=== PATIENT | female | born 1980 | race Asian ===

== ENCOUNTER 2020-04-07 21:53 | Emergency (ER) | payer BC ==
[~2020-04-07] VITALS: Ht 142.2 cm; Wt 44.5 kg
[2020-04-07] MEDS ORDERED: haloperidol lactate 5mg/ml inj IM ONE (22:15)
[2020-04-07] MEDS ORDERED: diphenhydrAMINE 50 mg/ml inj IM ONE (22:15)
[2020-04-07] MEDS ORDERED: LORazepam 2 mg/ml vial IM ONE (22:15)
[2020-04-07 22:22] LABS: BASOPHILS # (AUTO) 0.1 X10'3 (0-0.2); BASOPHILS % (AUTO) 0.4 % (0-1); EOSINOPHILS % (AUTO) 0 % (0-6); HEMATOCRIT 40.1 % (35.0-45.0); HEMOGLOBIN 13.9 g/dl (12.0-16.0); LYMPHOCYTES # (AUTO) 2.8 X10'3 (1.1-4.8); LYMPHOCYTES % (AUTO) 14.3 % (21-51); MEAN CORPUSCULAR HEMOGLOBIN 29.1 PG (27.0-31.0); MEAN CORPUSCULAR HGB CONC 34.5 g/dL (33.0-36.5); MEAN CORPUSCULAR VOLUME 84.3 FL (78-98); MEAN PLATELET VOLUME 7.6 FL (7.4-10.4); MONOCYTES # (AUTO) 1.3 X10'3 (0-0.9); MONOCYTES % (AUTO) 6.9 % (2-12); NEUTROPHILS # (AUTO) 15.2 X10'3 (1.8-7.7); NEUTROPHILS % (AUTO) 78.4 % (42-75); PLATELET COUNT 560 X10'3 (140-440); RED BLOOD COUNT 4.76 X10'6 (4.20-5.60); RED CELL DISTRIBUTION WIDTH 12.4 % (11.5-14.5); WHITE BLOOD COUNT 19.4 X10'3 (4.5-11.0)
[2020-04-07 22:33] LABS: ALANINE AMINOTRANSFERASE 58 U/L (12-78); ALBUMIN 4.4 G/DL (3.4-5.0); ALKALINE PHOSPHATASE 93 IU/L (46-116); ANION GAP 14 (8-16); ASPARTATE AMINO TRANSFERASE 22 U/L (10-37); BILIRUBIN,TOTAL 0.6 MG/DL (0.1-1.0); BLOOD UREA NITROGEN 7 MG/DL (7-18); BUN/CREATININE RATIO 6.9 (6.6-38.0); CALCIUM 9.8 MG/DL (8.5-10.1); CHLORIDE 103 MMOL/L (99-107); CREATININE 1.01 MG/DL (0.40-0.90); GLUCOSE 136 MG/DL (70-104); POTASSIUM 4.2 MMOL/L (3.5-5.1); SODIUM 141 MMOL/L (135-145); TOTAL CARBON DIOXIDE 24.3 MMOL/L (24-32); eGFR 60 ML/MIN
[2020-04-07 22:41] LABS: URINE HCG NEGATIVE (NEG)
[2020-04-07 22:42] LABS: COLOR,URINE YELLOW (Yellow); GLUCOSE, URINE NEGATIVE (Neg); KETONES,URINE 15 mg/dl (Neg); LEUKOCYTE ESTERASE ,URINE NEGATIVE (Neg); NITRITES, URINE NEGATIVE (Neg); OCCULT BLOOD,URINE MODERATE (Neg); PH,URINE 5.5 (4.8-8.0); PROTEIN,URINE 30 mg/dl (Neg); UROBILINOGEN,URINE 0.2 E.U/dL (0.2-1.0)
[2020-04-07 22:44] LABS: ACETAMINOPHEN < 2.0 UG/ML (10-30); ETHANOL < 0.010 GM/DL (0.0-0.010)
[2020-04-07 22:52] LABS: CLARITY,URINE SLIGHTLY CLOUDY (Clear); UA COLLECTION TYPE STRAIGHT CATH
[2020-04-07 22:53] LABS: AMORPHOUS URATES 1+; BACTERIA,URINE FEW /HPF (Neg); RBC,URINE 0-2 /HPF (0-2); SQUAMOUS EPITHELIAL CELL,UR FEW /LPF (FEW); WBC,URINE NONE SEEN /HPF (0-4)
[2020-04-07 22:55] LABS: URINE AMPHETAMINE SCREEN NEGATIVE (Neg); URINE BARBITUATE SCREEN NEGATIVE (Neg); URINE BENZODIAZEPINES SCREEN NEGATIVE (Neg); URINE CANNABINOID SCREEN NEGATIVE (Neg); URINE COCAINE SCREEN NEGATIVE (Neg); URINE METHADONE SCREEN NEGATIVE (Neg); URINE OPIATE SCREEN NEGATIVE (Neg); URINE PHENCYCLIDINE SCREEN NEGATIVE (Neg)
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
--- NOTE | 2020-04-07 23:09 | NUR ---
PT REMAINS IN RESTRAINTS. PTS TALKING WITH HER ON PHONE. PT IS SLEEPY AND CALM. WAS GIVEN B52 APROX 40 MIN AGO.
--- NOTE | 2020-04-07 23:10 | NUR ---
reports that pt with no medical history and that she only has perscription for flexeril for chronic neck and shouder pain.
[2020-04-07] MEDS ORDERED: CYCL-1 PO (23:11)
--- NOTE | 2020-04-07 23:57 | NUR ---
lower extremity ankle restraints removed
--- NOTE | 2020-04-08 02:32 | NUR ---
WRIST RESTRAINTS REMOVED UP TO BATHROOM, WITH ASSISTANCE UNSTEADY ON FEET.
--- NOTE | 2020-04-08 06:28 | NUR ---
Patient is resting quietly.
--- NOTE | 2020-04-08 08:30 | NUR ---
Pt awake, eating breakfast, states she doesn't know why she is here.
--- NOTE | 2020-04-08 09:47 | NUR ---
pt ambulated from main er 9 to overflow 25
--- NOTE | 2020-04-08 10:00 | NUR ---
pt is sleeping. no issues at this time
--- NOTE | 2020-04-08 11:00 | NUR ---
pt was given back her wedding ring. she was having lots of anxiety about not having her wedding band. pt feels better having it back
--- NOTE | 2020-04-08 12:15 | NUR ---
PT IS BEING RELEASED BY [facility] WHO REPORTS IS ON HIS WAY FROM [place] WITH AN ETA OF 1500 TO PICK PT UP
--- NOTE | 2020-04-08 13:15 | NUR ---
pt is waiting for her to come pick her up
--- NOTE | 2020-04-08 14:00 | NUR ---
pt is resting
--- NOTE | 2020-04-08 15:00 | NUR ---
pt is resting
--- NOTE | 2020-04-08 16:00 | NUR ---
pt is resting
== END 2020-04-08 17:03 | disposition home or self-care (01) ==
LOC: ER 21:54
DX: F23 Brief psychotic disorder (principal); F43.10 Post-traumatic stress disorder, unspecified; Z91.5 Personal history of self-harm; Z79.899 Other long term (current) drug therapy
CPT/HCPCS: 36415; 80053; 80178; 80305; 80320; 80329; 81001; 81025; 84443; 85025; 96372; 99285; J1200; J1630; J2060